=== PATIENT | female | born 1980 | race African-American/Black ===

== ENCOUNTER 2020-07-05 00:41 | Inpatient (IN) ==
[2020-07-05] MEDS ORDERED: SODIUM CHLORIDE 0.9% 500 ML IV STA (01:14)
[2020-07-05] MEDS ORDERED: ALUM/MAG/SIMETH/LIDO VISC 1:1 30 ML BOTTLE PO STA (01:14)
[2020-07-05] MEDS ORDERED: ONDANSETRON 4 MG/2 ML VIAL IV STA (01:14)
[2020-07-05] MEDS ORDERED: HYDROmorphone 2 MG/1 ML VIAL IV STA ×2 (01:14→04:42)
[2020-07-05 01:37] LABS: Basophils % 0.1 % (0.0-0.8); Eosinophils % 0.2 % (0.00-10.9); Hematocrit 36.1 VOL% (35.7-47.0); Hemoglobin 11.3 GM/DL (12.0-16.0); Immature Granulocytes % 0.7 %; Immature Granulocytes Absolute 0.15 #; Lymphocytes # 2.5 10*3/uL (1.4-4.0); Lymphocytes % 11.9 % (21.3-54.2); Mean Corpuscular HGB Conc 31.3 GM/DL (32-36); Mean Corpuscular Volume 86.6 FL (87-102); Mean Platelet Volume 10.1 FL (9.6-12.0); Monocytes % 7.5 % (1.7-12.7); Neutrophils % 79.6 % (38.7-73.9); Platelet Count 292 T/CUMM (130-400); Red Blood Count 4.17 MC/CUMM (3.8-5.5); Red Cell Distribution Width 13.9 % (9.3-17.3); White Blood Count 20.9 T/CUMM (4-12)
[2020-07-05 02:01] LABS: Albumin 3.5 G/DL (3.4-5.0); Bilirubin,Total 0.6 MG/DL (0.2-1.0); Calcium 8.7 MG/DL (8.5-10.1); Total Protein 7.4 G/DL (6.4-8.2)
[2020-07-05 02:19] LABS: Band Neutrophils 3 % (0-10); Eosinophils 1 % (0-10); Lymphocytes 17 % (20-55); Platelet Estimate Normal; Segmented Neutrophils 74 % (50-85); Total Cells Counted 100
[2020-07-05 03:19] LABS: Bacteria,Urine Occasional /HPF (Few); Bilirubin,Urine Negative (Negative); Blood, Urine Negative (Negative); Glucose,Urine (UA) Negative (Negative); Ketones,Urine Negative (Negative); Mucus,Urine Many /LPF (Occasional); Nitrite,Urine Negative (Negative); Protein,Urine 100 MG/DL; RBC,Urine 6 /HPF (0-4); Squamous Epithelial Cell,Urine Occasional /HPF (0-10); Urine Appearance Slightly Hazy (Clear); Urine Specific Gravity 1.049 (1.001-1.035)
[2020-07-05 03:21] LABS: Urine Color Yellow (Yellow)
[2020-07-05] MEDS ORDERED: cefTRIAXone 1,000 MG in SODIUM CHLORIDE 0.9% 100 ML IV STA (03:26)
[2020-07-05] MEDS ORDERED: GLUCAGON 1 MG VIAL IM PRN (04:41)
[2020-07-05] MEDS ORDERED: DEXTROSE 50% 25 GM/50 ML VIAL IV PRN (04:41)
[2020-07-05] MEDS ORDERED: hydrALAZINE 20 MG/1 ML VIAL IV PRN (04:41)
[2020-07-05] MEDS ORDERED: HYDROmorphone 2 MG/1 ML VIAL IV PRN (04:46)
[2020-07-05] MEDS: SODIUM CHLORIDE 0.9% 1,000 ML IV SCH ×2 (06:40→22:15)
[2020-07-05] MEDS: ENOXAPARIN 40 MG/0.4 ML SYRINGE SUBCUT SCH (06:42)
[2020-07-05] MEDS: HYDROmorphone 2 MG/1 ML VIAL IV PRN ×2 (14:36→22:15)
[2020-07-05] MEDS: ONDANSETRON 4 MG/2 ML VIAL IV PRN (22:14)
[2020-07-06] MEDS: cefTRIAXone 2,000 MG in SODIUM CHLORIDE 0.9% 100 ML IV SCH (05:19)
[2020-07-06] MEDS: ENOXAPARIN 40 MG/0.4 ML SYRINGE SUBCUT SCH (05:20)
[2020-07-06 06:11] LABS: Basophils % 0.2 % (0.0-0.8); Eosinophils # 0.1 10*3/uL (0.0-0.87); Eosinophils % 0.7 % (0.00-10.9); Hematocrit 34.3 VOL% (35.7-47.0); Hemoglobin 10.5 GM/DL (12.0-16.0); Immature Granulocytes % 1.1 %; Immature Granulocytes Absolute 0.14 #; Lymphocytes % 15.3 % (21.3-54.2); Mean Corpuscular HGB Conc 30.6 GM/DL (32-36); Mean Platelet Volume 10.3 FL (9.6-12.0); Monocytes % 6.9 % (1.7-12.7); Neutrophils % 75.8 % (38.7-73.9); Platelet Count 256 T/CUMM (130-400); Red Blood Count 3.81 MC/CUMM (3.8-5.5); Red Cell Distribution Width 14.2 % (9.3-17.3)
[2020-07-06 06:21] LABS: Calcium 8.6 MG/DL (8.5-10.1); Osmolality,Calculated 274.5 MOS/KG (273-304); Potassium 3.9 MMOL/L (3.5-5.1)
[2020-07-06] MEDS: ONDANSETRON 4 MG/2 ML VIAL IV PRN ×3 (06:36→17:14)
[2020-07-06] MEDS: SODIUM CHLORIDE 0.9% 1,000 ML IV SCH ×3 (09:36→22:28)
[2020-07-06] MEDS: PANTOPRAZOLE 40 MG VIAL IV SCH (16:05)
[2020-07-06 17:49] LABS: Barbiturates Screen,Urine Negative (Negative); Benzodiazepines Screen,Urine Negative (Negative); Cannabinoid Screen,Urine Negative (Negative); Opiate Screen,Urine Positive (Negative); Phencyclidine Screen,Urine Negative (Negative)
[2020-07-07] MEDS: cefTRIAXone 2,000 MG in SODIUM CHLORIDE 0.9% 100 ML IV SCH (05:02)
[2020-07-07] MEDS: ENOXAPARIN 40 MG/0.4 ML SYRINGE SUBCUT SCH (05:03)
[2020-07-07 06:50] LABS: Basophils % 0.2 % (0.0-0.8); Eosinophils # 0.2 10*3/uL (0.0-0.87); Eosinophils % 2.6 % (0.00-10.9); Hematocrit 31.8 VOL% (35.7-47.0); Hemoglobin 10.2 GM/DL (12.0-16.0); Immature Granulocytes % 1.2 %; Lymphocytes # 1.9 10*3/uL (1.4-4.0); Lymphocytes % 23.5 % (21.3-54.2); Mean Corpuscular HGB Conc 32.1 GM/DL (32-36); Mean Corpuscular Volume 86.9 FL (87-102); Mean Platelet Volume 10.6 FL (9.6-12.0); Monocytes % 7.1 % (1.7-12.7); Neutrophils % 65.4 % (38.7-73.9); Platelet Count 243 T/CUMM (130-400); Red Blood Count 3.66 MC/CUMM (3.8-5.5); Red Cell Distribution Width 14.1 % (9.3-17.3); White Blood Count 8.1 T/CUMM (4-12)
[2020-07-07 07:30] LABS: Albumin 2.4 G/DL (3.4-5.0); Bilirubin,Total 0.6 MG/DL (0.2-1.0); Calcium 8.6 MG/DL (8.5-10.1); Osmolality,Calculated 272.7 MOS/KG (273-304); Potassium 3.7 MMOL/L (3.5-5.1); Total Protein 7.1 G/DL (6.4-8.2)
[2020-07-07] MEDS: PANTOPRAZOLE 40 MG VIAL IV SCH (08:35)
[2020-07-07] MEDS: ACETAMINOPHEN 325 MG TABLET PO PRN ×2 (09:03→19:11)
[2020-07-07] MEDS: SODIUM CHLORIDE 0.9% 1,000 ML IV SCH (09:14)
[2020-07-08] MEDS: HYDROmorphone 2 MG/1 ML VIAL IV PRN (00:05)
[2020-07-08] MEDS: SODIUM CHLORIDE 0.9% 1,000 ML IV SCH ×3 (00:20→21:56)
[2020-07-08] MEDS: cefTRIAXone 2,000 MG in SODIUM CHLORIDE 0.9% 100 ML IV SCH (04:45)
[2020-07-08] MEDS: ENOXAPARIN 40 MG/0.4 ML SYRINGE SUBCUT SCH (04:45)
[2020-07-08 06:31] LABS: Basophils % 0.4 % (0.0-0.8); Eosinophils # 0.2 10*3/uL (0.0-0.87); Eosinophils % 4.4 % (0.00-10.9); Hematocrit 32.5 VOL% (35.7-47.0); Hemoglobin 9.9 GM/DL (12.0-16.0); Immature Granulocytes % 1.8 %; Lymphocytes # 2.2 10*3/uL (1.4-4.0); Lymphocytes % 39.9 % (21.3-54.2); Mean Corpuscular HGB Conc 30.5 GM/DL (32-36); Mean Corpuscular Volume 87.8 FL (87-102); Monocytes % 8.2 % (1.7-12.7); Neutrophils % 45.3 % (38.7-73.9); Platelet Count 292 T/CUMM (130-400); Red Cell Distribution Width 14.2 % (9.3-17.3); White Blood Count 5.5 T/CUMM (4-12)
[2020-07-08 06:47] LABS: Calcium 8.7 MG/DL (8.5-10.1); Osmolality,Calculated 276.4 MOS/KG (273-304); Potassium 3.6 MMOL/L (3.5-5.1)
[2020-07-08 08:31] LABS: Anisocytosis 1+; Atypical Lymphocytes Few; Band Neutrophils 11 % (0-10); Eosinophils 4 % (0-10); Lymphocytes 38 % (20-55); Nucleated Red Blood Cells 1 (0-5); Platelet Estimate Normal; Segmented Neutrophils 38 % (50-85); Smudge Cells Few; Total Cells Counted 100
[2020-07-08 08:32] LABS: Burr Cells Few
[2020-07-08] MEDS: PANTOPRAZOLE 40 MG VIAL IV SCH (08:33)
[2020-07-08] MEDS: ACETAMINOPHEN 325 MG TABLET PO PRN (08:47)
[2020-07-09] MEDS: ENOXAPARIN 40 MG/0.4 ML SYRINGE SUBCUT SCH (05:24)
[2020-07-09] MEDS: cefTRIAXone 2,000 MG in SODIUM CHLORIDE 0.9% 100 ML IV SCH (05:24)
[2020-07-09] MEDS: LEVOTHYROXINE 125 MCG TABLET PO SCH (05:34)
[2020-07-09 06:20] LABS: Basophils % 0.5 % (0.0-0.8); Eosinophils # 0.3 10*3/uL (0.0-0.87); Eosinophils % 4.5 % (0.00-10.9); Hematocrit 33.8 VOL% (35.7-47.0); Hemoglobin 10.4 GM/DL (12.0-16.0); Immature Granulocytes % 3.2 %; Immature Granulocytes Absolute 0.18 #; Lymphocytes % 35.5 % (21.3-54.2); Mean Corpuscular HGB Conc 30.8 GM/DL (32-36); Mean Corpuscular Volume 87.3 FL (87-102); Mean Platelet Volume 9.6 FL (9.6-12.0); Monocytes % 8.6 % (1.7-12.7); NRBC # 0.04 10*3/uL; Neutrophils % 47.7 % (38.7-73.9); Platelet Count 310 T/CUMM (130-400); Red Blood Count 3.87 MC/CUMM (3.8-5.5); Red Cell Distribution Width 14.5 % (9.3-17.3); White Blood Count 5.6 T/CUMM (4-12)
[2020-07-09 06:44] LABS: Calcium 8.7 MG/DL (8.5-10.1); Osmolality,Calculated 275.4 MOS/KG (273-304); Potassium 3.6 MMOL/L (3.5-5.1)
[2020-07-09 06:53] LABS: HDL Cholesterol < 10 MG/DL (40-60); Triglycerides 143 MG/DL (2-150); VLDL CHOLESTEROL 28.6 MG/DL
[2020-07-09] MEDS: PANTOPRAZOLE 40 MG VIAL IV SCH (09:09)
[2020-07-09] MEDS ORDERED: TISSUE ADHESIVE 1 EACH APPLICATOR TOP ONE (09:35)
[2020-07-09] MEDS ORDERED: LIDOCAINE 2% 5 ML VIAL ONE (09:36)
[2020-07-09] MEDS ORDERED: propofoL 200 MG/20 ML VIAL IV ONE (09:36)
[2020-07-09] MEDS ORDERED: fentaNYL 100 MCG/2 ML VIAL ONE (09:37)
[2020-07-09] MEDS ORDERED: ONDANSETRON 4 MG/2 ML VIAL ONE (09:37)
[2020-07-09] MEDS ORDERED: MIDAZOLAM 2 MG/2 ML VIAL ONE (09:37)
[2020-07-09] MEDS ORDERED: DEXAMETHASONE 4 MG/1 ML VIAL ONE (09:37)
[2020-07-09] MEDS ORDERED: KETOROLAC 30 MG/1 ML VIAL ONE (09:37)
[2020-07-09] MEDS ORDERED: ROCURONIUM 50 MG/5 ML VIAL IV ONE (09:37)
[2020-07-09] MEDS ORDERED: ACETAMINOPHEN INJ 1,000 MG/100 ML VIAL IV ONE (09:37)
[2020-07-09] MEDS ORDERED: ceFAZolin 1,000 MG VIAL ONE (10:04)
[2020-07-09] MEDS ORDERED: SEVOFLURANE 1 UNIT/15 MINUTE INH ONE ×3 (10:21→11:19)
[2020-07-09] MEDS ORDERED: SUCCINYLCHOLINE 200 MG/10 ML VIAL ONE (10:41)
[2020-07-09] MEDS ORDERED: ePHEDrine 50 MG/ML VIAL ONE (10:57)
[2020-07-09] MEDS ORDERED: LACTATED RINGERS 1,000 ML IV ONE (10:57)
[2020-07-09] MEDS ORDERED: ONDANSETRON 4 MG/2 ML VIAL IV PRN (11:14)
[2020-07-09] MEDS ORDERED: GLYCOPYRROLATE 0.4 MG/2 ML VIAL ONE (11:20)
[2020-07-09] MEDS ORDERED: SUGAMMADEX 200 MG/2 ML VIAL IV ONE (11:21)
[2020-07-09] MEDS: HYDROmorphone 2 MG/1 ML VIAL IV PRN ×4 (11:52→20:56)
[2020-07-09] MEDS ORDERED: MEPERIDINE 25 MG/1 ML VIAL IV PRN (12:05)
[2020-07-09] MEDS: SODIUM CHLORIDE 0.9% 1,000 ML IV SCH ×2 (12:39→17:18)
[2020-07-10] MEDS: SODIUM CHLORIDE 0.9% 1,000 ML IV SCH ×2 (06:15→18:48)
[2020-07-10] MEDS: cefTRIAXone 2,000 MG in SODIUM CHLORIDE 0.9% 100 ML IV SCH (06:15)
[2020-07-10 06:17] LABS: Basophils % 0.2 % (0.0-0.8); Eosinophils % 0.1 % (0.00-10.9); Hemoglobin 10.2 GM/DL (12.0-16.0); Immature Granulocytes % 2.1 %; Lymphocytes % 20.8 % (21.3-54.2); Mean Corpuscular HGB Conc 30.9 GM/DL (32-36); Mean Corpuscular Volume 87.8 FL (87-102); Monocytes % 6.2 % (1.7-12.7); NRBC # 0.02 10*3/uL; Neutrophils % 70.6 % (38.7-73.9); Platelet Count 335 T/CUMM (130-400); Red Blood Count 3.76 MC/CUMM (3.8-5.5); Red Cell Distribution Width 14.8 % (9.3-17.3); White Blood Count 9.7 T/CUMM (4-12)
[2020-07-10 06:46] LABS: Alanine Aminotransferase 26 U/L (13-56); Albumin 2.6 G/DL (3.4-5.0); Alkaline Phosphatase 69 U/L (45-117); Aspartate Amino Transferase 35 U/L (0-37); Bilirubin,Total < 0.39 MG/DL (0.2-1.0); Blood Urea Nitrogen 5 MG/DL (7-18); Calcium 8.5 MG/DL (8.5-10.1); Carbon Dioxide 24 MMOL/L (21-32); Estimated Glom Filtration Rate 160 ML/MIN; Glucose 97 MG/DL (74-106); Osmolality,Calculated 271.7 MOS/KG (273-304); Potassium 4.1 MMOL/L (3.5-5.1); Sodium 138 MMOL/L (136-145); Total Protein 7.4 G/DL (6.4-8.2)
[2020-07-10] MEDS: LEVOTHYROXINE 125 MCG TABLET PO SCH (07:06)
[2020-07-10] MEDS: PANTOPRAZOLE 40 MG VIAL IV SCH (09:46)
[2020-07-11 06:04] LABS: Basophils % 0.5 % (0.0-0.8); Eosinophils # 0.2 10*3/uL (0.0-0.87); Eosinophils % 2.6 % (0.00-10.9); Hematocrit 32.8 VOL% (35.7-47.0); Hemoglobin 10.2 GM/DL (12.0-16.0); Immature Granulocytes % 2.1 %; Immature Granulocytes Absolute 0.16 #; Lymphocytes # 2.6 10*3/uL (1.4-4.0); Lymphocytes % 34.1 % (21.3-54.2); Mean Corpuscular HGB Conc 31.1 GM/DL (32-36); Mean Corpuscular Volume 88.4 FL (87-102); Mean Platelet Volume 9.8 FL (9.6-12.0); Monocytes % 7.3 % (1.7-12.7); NRBC # 0.02 10*3/uL; Neutrophils % 53.4 % (38.7-73.9); Platelet Count 338 T/CUMM (130-400); Red Blood Count 3.71 MC/CUMM (3.8-5.5); Red Cell Distribution Width 15.1 % (9.3-17.3); White Blood Count 7.7 T/CUMM (4-12)
[2020-07-11] MEDS: LEVOTHYROXINE 125 MCG TABLET PO SCH (06:25)
[2020-07-11] MEDS: cefTRIAXone 2,000 MG in SODIUM CHLORIDE 0.9% 100 ML IV SCH (06:25)
[2020-07-11 06:26] LABS: Hypochromasia 1+; Microcytosis 1+
[2020-07-11 06:27] LABS: Platelet Estimate Normal; Polychromasia Slight
[2020-07-11 06:34] LABS: Albumin 2.6 G/DL (3.4-5.0); Bilirubin,Total 0.6 MG/DL (0.2-1.0); Calcium 8.5 MG/DL (8.5-10.1); Osmolality,Calculated 274.5 MOS/KG (273-304); Potassium 3.6 MMOL/L (3.5-5.1); Total Protein 6.9 G/DL (6.4-8.2)
[2020-07-11] MEDS: PANTOPRAZOLE 40 MG VIAL IV SCH (08:19)
[2020-07-11 11:32] VITALS: BP 121/61
== END 2020-07-11 14:15 | disposition home or self-care (01) | DRG 418 ==
LOC: N.ED 00:41 → N.EDINP 00:41 → N.3E 12:38
PROVIDERS: ADMIT Internal Medicine; ATTEND Internal Medicine
PROC: LAPCHOL (2020-07-09 10:00)